=== PATIENT | female | born 1960 | race Asian ===

== ENCOUNTER 2017-04-30 11:38 | Emergency (ER) | payer OTHER ==
[2017-04-30 11:53] VITALS: RESP 16; TEMP 98.8
--- NOTE | 2017-04-30 12:02 | EDPHY ---
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 She inadvertently splashed some of the lack her into her right eye. The eye was rinsed at work and then she came to the emergency department. This occurred about 0.5 hr ago. She reports some discomfort in that eye. No change in vision. She was working next to an eye wash and her eye was irrigated with this wash prior to coming to ED. MDMS for this product, X59 Strip Coating, shows the components to be 4- [id number], xylene, toluene, benzyl butyl phthlate and ethyl benzene. The information sheet recommends using eye wash if there is an exposure. It states that moderate irritation and corneal damage can be caused with direct contact. Romanian court interpreter via telephone was used. REVIEW OF SYSTEMS: As per history of present illness. No recent fever, cough or cold, shortness of breath, chest pain, abdominal pain. Past medical history: Hypertension Past surgical history: Negative Social history: She works for [employer]. She is . No tobacco use. General Appearance: Alert. Vital signs reviewed. Heart rate 108 at triage. Eyes: Pupils equal and round, no conjunctival injection, no discharge. Anicteric. Visual Acuity: noted from Nurse's notes. Pupils:equal round and reactive to light EOMI Lids: no edema or swelling Skin: no proptosis, no periorbital erythema or swelling, no vesicles Conjunctivae: not injected, no discharge Cornea: exam of the right eye with fluorescein shows no corneal abrasion or fluorescein uptake Anterior chamber OD:normal, no hyphema or hypopyon ENT, Mouth: Mucous membranes are moist, no oropharyngeal erythema or edema. Neck: No lymphadenopathy. Respiratory: Lungs are clear to auscultation. Cardiovascular: Regular rate and rhythm; not tachycardic at the time of my exam. Skin: Warm and dry, no rashes on exposed skin, normal color. Neurological: Alert and oriented. Moving all four extremities easily and equally. Psychiatric: Normal affect. - Personal History LMP (Females 10-55): Post Menopausal Current Tetanus Diphtheria and Acellular Pertussis (TDAP): Yes Tetanus Vaccine Date: 2014 - Medical/Surgical History Hx Asthma: No Hx Chronic Respiratory Disease: No Hx Diabetes: No Hx Cardiac Disease: No Hx Renal Disease: No Hx Cirrhosis: No Hx Alcoholism: No Hx HIV/AIDS: No Hx Splenectomy or Spleen Trauma: No Other PMH: Med hx-htn. 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 20 min irrigation was recommended and this will be performed in the emergency department using Ryan lens. Follow up with Ophthalmology has been advised and a referral has been provided. On my exam I do not find evidence of corneal or other eye injury as a result of this exposure. Slit-lamp examined for seen staining was performed. Proparacaine drop was used for anesthesia. The involved chemical is not considered either an alkaline or an acid. She has no evidence of blepharospasm , decreased vision, corneal injection, or photophobia. Patient was noted to be hypertensive. She did not take her antihypertensive medication today and is understandably under some stress. She would take her antihypertensive medication and will follow up with a primary care physician to have her blood pressure rechecked within the next few weeks. Differential Diagnosis: I considered a differential diagnosis that includes but is not limited to alkaline or acid exposure, retained foreign body, corneal abrasion irritation, keratitis, iritis. - Data Points Medications Given: Discontinued Medications Proparacaine HCl (Alcaine 0.5%) 1 drops RTEYE ONCE ONE Stop: 04/30/17 12:04 Last Admin: 04/30/17 12:11 Dose: 1 drop Departure - Departure Disposition: Home, Routine, Self-Care Clinical Impression: Chemical exposure of eye Condition: Good Instructions: Chemical Eye Hernandez (ED) Additional Instructions: I do not see an injury to your right eye as a result of this chemical exposure. 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 I am referring you to Dr. Woodward. Call his office to schedule an appointment for tomorrow. Take the information sheet with you to that appointment. Be sure that you were safety eye goggles while at work. Referrals: Rick Woodward MD [Medical Doctor] - As per Instructions
[2017-04-30] MEDS ORDERED: PROPARACAINE 0.5% 15 ML OPHT DROP RTEYE ONE (12:03)
[2017-04-30 13:10] VITALS: BP 180/110
[2017-04-30 13:11] VITALS: PULSE 95
[2017-04-30 13:28] VITALS: O2SAT 94
== END 2017-04-30 13:20 | disposition home or self-care (01) ==
LOC: CED 11:38
DX: Z77.098 Contact with and (suspected) exposure to other hazardous, chiefly nonmedicinal, chemicals (principal); I10 Essential (primary) hypertension